=== PATIENT | female | born 1945 | race Native Hawaiian/Other Pacific Islander ===

== ENCOUNTER 2020-12-06 17:50 | Emergency (ER) | payer OTHER ==
[~2020-12-06] VITALS: Ht 152.4 cm; Wt 79.8 kg
[2020-12-06] MEDS ORDERED: AUGMENTIN 875-1 EACH PO (18:40)
[2020-12-06 19:13] VITALS: BP 174/69
[2020-12-07] MEDS ORDERED: AUGMENTIN 875-1 EACH PO (14:58)
== END 2020-12-06 19:13 | disposition home or self-care (01) ==
LOC: ER 17:50
DX: S01.511A Laceration without foreign body of lip, initial encounter (principal); I10 Essential (primary) hypertension; E78.5 Hyperlipidemia, unspecified; W54.0XXA Bitten by dog, initial encounter; Y93.89 Activity, other specified; Y92.89 Other specified places as the place of occurrence of the external cause; Y99.8 Other external cause status

== ENCOUNTER → 2021-08-10 | Outpatient (CLI) | payer OTHER ==
[~2021-08-10] MED LIST: AUGMENTIN 875-1 EACH PO
== END ==
LOC: NUC 10:24
PROVIDERS: ATTEND Nurse Practitioner
DX: Z78.0 Asymptomatic menopausal state (principal)

== ENCOUNTER → 2021-08-16 | Outpatient (CLI) | payer OTHER | LOC: BC 16:04 | PROVIDERS: ATTEND Nurse Practitioner | DX: Z12.31 Encounter for screening mammogram for malignant neoplasm of breast (principal) ==